=== PATIENT | male | born 1985 | race Caucasian/White ===

== ENCOUNTER 2023-01-01 14:23 | Emergency (ER) | payer OTHER ==
[~2023-01-01] VITALS: Ht 188 cm; Wt 95.3 kg
[2023-01-01 15:09] LABS: HEMATOCRIT 45.2 % (36.7-47.1); MEAN CORPUSCULAR HEMOGLOBIN 26.7 uug (23.8-33.4); MEAN CORPUSCULAR VOLUME 79.8 fL (73.0-96.2); PLATELET COUNT (AUTO) 190 K/uL (152-348)
--- NOTE | 2023-01-01 15:14 | NUR ---
PT IS IN ROOM #1B. DR RUIZ EVALUATED THE PT.
[2023-01-01 15:18] LABS: CARBON DIOXIDE 29 mmol/L (21-32); CHLORIDE 101 mmol/L (98-107); GLUCOSE 87 mg/dL (74-106); UREA NITROGEN, BLOOD 15 mg/dL (7-18)
[2023-01-01 15:27] LABS: ALANINE AMINOTRANSFERASE 92 U/L (16-63); ALKALINE PHOSPHATASE 47 U/L (50-136); ASPARTATE AMINOTRANSFERASE 30 U/L (15-37); BILIRUBIN,DIRECT 0.1 mg/dL (0.0-0.2); BILIRUBIN,TOTAL 0.4 mg/dL (0.2-1.0); TOTAL PROTEIN, SERUM 7.3 g/dL (6.4-8.2)
--- NOTE | 2023-01-01 17:45 | NUR ---
PT WAS D/C'd TO HOME. D/C INSTRUCTIONS GIVEN TO THE PT BY DR RUIZ.
[2023-01-01 17:46] VITALS: BP 137/81
== END 2023-01-01 17:47 | disposition home or self-care (01) ==
LOC: ER 14:23
DX: R07.89 Other chest pain (principal); R09.89 Other specified symptoms and signs involving the circulatory and respiratory systems; K21.9 Gastro-esophageal reflux disease without esophagitis; F17.210 Nicotine dependence, cigarettes, uncomplicated
CPT/HCPCS: 36415; 71045; 84484; 85025; 93005; A4663